=== PATIENT | male | born 1950 | race Caucasian/White ===

== ENCOUNTER 2016-11-02 11:02 | Emergency (ER) | payer BC, MEDICAID, OTHER ==
[2016-11-02 11:23] VITALS: BP 141/77
[2016-11-02] MEDS ORDERED: HYDROmorphone 1 MG/ML Syringe IM ONE (11:34)
--- NOTE | 2016-11-02 11:41 | EDM.PDOC ---
ED HPI GENERAL MEDICAL PROBLEM - General Chief Complaint: Lower Extremity Injury/Pain Stated Complaint: PAIN FROM LOWER BACK TO ANKLE Time Seen by Provider: 11/02/16 11:24 Source of Information: Reports: Patient, RN Notes Reviewed History Limitations: Reports: No Limitations - History of Present Illness INITIAL COMMENTS - FREE TEXT/NARRATIVE: 66-year-old gentleman presents emergency department today with left hip pain he is currently being evaluated for hip replacement he has received injections in this hip which has provided significant relief he does use ibuprofen as well as .he believes gabapentin. Unfortunately the pain medication is not helping him his biggest issue today is for pain control. - Related Data Allergies Allergy/AdvReac Type Severity Reaction Status Date / Time No Known Allergies Allergy Verified 04/09/16 08:53 Home Meds: Home Meds Aspirin [Maria Elena Chewable Aspirin] 81 mg PO DAILY 10/15/14 [History] FLUoxetine [PROzac] 20 mg PO DAILY 10/15/14 [History] Losartan [Cozaar] 25 mg PO DAILY 10/15/14 [History] Omeprazole [Prilosec] 20 mg PO DAILY 10/15/14 [History] Rivaroxaban [Xarelto] 20 tab PO DAILY 10/15/14 [History] atorvaSTATin [Lipitor] 80 mg PO DAILY 10/15/14 [History] Multivitamin [Multi-Vitamin Daily] 1 tab PO DAILY 12/07/14 [History] Sildenafil Citrate [Viagra] 25 mg PO ASDIRECTED PRN 12/07/14 [History] Metoprolol Tartrate [Metoprolol Tartrate] 100 mg PO BID 04/07/16 [History] Past Medical History HEENT History: Reports: None Cardiovascular History: Reports: Afib, CAD, Cardiomyopathy Genitourinary History: Reports: BPH Psychiatric History: Reports: Depression - Infectious Disease History Infectious Disease History: Reports: Chicken Pox, Measles, Mumps - Past Surgical History HEENT Surgical History: Reports: Cataract Surgery Cardiovascular Surgical History: Reports: Coronary Artery Stent, Other (See Below) Musculoskeletal Surgical History: Reports: Arthroscopic Knee, Hip Replacement, Shoulder Surgery Social & Family History - Tobacco Use Smoking Status *Q: Former Smoker Years of Tobacco use: 20 Packs/Tins Daily: 3 Used Tobacco, but Quit: Yes Month Tobacco Last Used: 01 Second Hand Smoke Exposure: No - Caffeine Use Caffeine Use: Reports: None - Alcohol Use Days Per Week of Alcohol Use: 7 Number of Drinks Per Day: 2 Total Drinks Per Week: 14 - Recreational Drug Use Recreational Drug Use: No Review of Systems - Review of Systems Review Of Systems: See Below Constitutional: Reports: No Symptoms Respiratory: Reports: No Symptoms Cardiovascular: Reports: No Symptoms Musculoskeletal: Reports: Joint Pain (Right hip pain) ED EXAM, GENERAL - Physical Exam Exam: See Below Free Text/Narrative:: Examination the back on appreciate any abnormality has full range of motion of the back there is no erythema there is no edema there is no point tenderness he has greatest tenderness is to palpation over the greater trochanter on the right side as well as in the buttocks cross leg test and straight leg test both negative pain is worse with standing Exam Limited By: No Limitations General Appearance: Alert, WD/WN, No Apparent Distress Course - Vital Signs Last Recorded V/S: Last Vital Signs Temp 98.1 F 11/02/16 11:20 Pulse 60 11/02/16 11:20 Resp 16 11/02/16 11:20 BP 141/77 H 11/02/16 11:20 Pulse Ox 97 11/02/16 11:20 - Orders/Labs/Meds Meds: Medications Discontinued Medications Generic Name Dose Route Start Last Admin Trade Name Binq PRN Reason Stop Dose Admin Hydromorphone HCl 1 mg 11/02/16 11:34 Dilaudid IM 11/02/16 11:35 ONETIME ONE Departure - Departure Time of Disposition: 11:40 Disposition: Home, Self-Care 01 Condition: Good Clinical Impression: Right hip pain - Discharge Information Forms: ED Department Discharge Additional Instructions: Use hydrocodone as needed for pain control, this medication does contain Tylenol monitor urine total dose of Tylenol not to exceed 4000 mg in a 24-hour period, Please followup with your primary care provider in 3-5 days if not better, please call return to the emergency department with worsening of symptoms. - Assessment/Plan Plan: Assessment Acuity = chronic Site and laterality = right hip pain Etiology = probable degenerative joint disease Manifestations = none Location of injury = Home Lab values = none Plan He is provided 1 mg Dilaudid IM for pain relief prescription written for hydrocodone total #10 tablets follow-up with primary care in 3-5 days for reevaluation, Patient was in agreement with the plan all questions were answered, they were instructed to return to the emergency department or call for worsening symptoms. This note was dictated using [employer] voice recognition software please call with any questions.
== END 2016-11-02 11:58 | disposition home or self-care (01) ==
LOC: JP.ED 11:02
DX: M25.552 Pain in left hip (principal); I48.91 Unspecified atrial fibrillation; I25.10 Atherosclerotic heart disease of native coronary artery without angina pectoris; F32.9 Major depressive disorder, single episode, unspecified; Z79.82 Long term (current) use of aspirin; Z79.899 Other long term (current) drug therapy; Z98.49 Cataract extraction status, unspecified eye; Z95.5 Presence of coronary angioplasty implant and graft; Z96.659 Presence of unspecified artificial knee joint; Z96.649 Presence of unspecified artificial hip joint; Z98.890 Other specified postprocedural states; Z87.891 Personal history of nicotine dependence
CPT/HCPCS: 96372; 99283; J1170

== ENCOUNTER 2016-11-03 13:28 | Emergency (ER) | payer MEDICAID ==
[2016-11-03 15:34] VITALS: BP 139/87
[2016-11-03] MEDS ORDERED: HYDROmorphone 1 MG/ML Syringe IM ONE (16:17)
--- NOTE | 2016-11-03 16:33 | EDM.PDOC ---
ED HPI GENERAL MEDICAL PROBLEM - General Chief Complaint: Lower Extremity Injury/Pain Stated Complaint: SEVER PAIN IN RIGHT HIP Time Seen by Provider: 11/03/16 16:00 - History of Present Illness INITIAL COMMENTS - FREE TEXT/NARRATIVE: Elie Moreno is a 66 yo male who presents with right hip pain. Pain has been gradually worsening over the past 2 weeks. Patient has been seen by orthopedics and had significant (though very transient) relief of pain with hip injection with anesthetic and corticosteroid medication. Patient feels his symptoms immediately returned when his anesthetic wore off. He was seen in this ED yesterday as his pain became unbearable. IM dilaudid helped his symptoms but the at home Patterson have not helped at all. Patient has not been doing anything else for pain. He is unable to take high dose NSAIDs as he is on xarelto. His pain is worse with standing, and lying flat on his back is his most comfortable position. Right Hip Pain Score (Numeric/FACES): 9 - Related Data Allergies Allergy/AdvReac Type Severity Reaction Status Date / Time No Known Allergies Allergy Verified 04/09/16 08:53 Home Meds: Home Meds Aspirin [Maria Elena Chewable Aspirin] 81 mg PO DAILY 10/15/14 [History] FLUoxetine [PROzac] 20 mg PO DAILY 10/15/14 [History] Losartan [Cozaar] 25 mg PO DAILY 10/15/14 [History] Omeprazole [Prilosec] 20 mg PO DAILY 10/15/14 [History] Rivaroxaban [Xarelto] 20 tab PO DAILY 10/15/14 [History] atorvaSTATin [Lipitor] 80 mg PO DAILY 10/15/14 [History] Multivitamin [Multi-Vitamin Daily] 1 tab PO DAILY 12/07/14 [History] Sildenafil Citrate [Viagra] 25 mg PO ASDIRECTED PRN 12/07/14 [History] Metoprolol Tartrate [Metoprolol Tartrate] 100 mg PO BID 04/07/16 [History] Gabapentin [Gabapentin] 1 tab PO TID 11/02/16 [History] Hydrocodone/Acetaminophen [Hydrocodon-Acetaminophen 5-325] 11/03/16 [History] Past Medical History HEENT History: Reports: None Cardiovascular History: Reports: Afib, CAD, Cardiomyopathy Genitourinary History: Reports: BPH Psychiatric History: Reports: Depression - Infectious Disease History Infectious Disease History: Reports: Chicken Pox, Measles, Mumps - Past Surgical History HEENT Surgical History: Reports: Cataract Surgery Cardiovascular Surgical History: Reports: Coronary Artery Stent, Other (See Below) Social & Family History - Tobacco Use Smoking Status *Q: Never Smoker Years of Tobacco use: 20 Packs/Tins Daily: 3 Used Tobacco, but Quit: Yes Month Tobacco Last Used: 01 Second Hand Smoke Exposure: No - Caffeine Use Caffeine Use: Reports: Coffee - Alcohol Use Days Per Week of Alcohol Use: 7 Number of Drinks Per Day: 2 Total Drinks Per Week: 14 - Recreational Drug Use Recreational Drug Use: No Review of Systems - Review of Systems Review Of Systems: See Below Constitutional: Reports: No Symptoms Eyes: Reports: No Symptoms Mouth/Throat: Reports: No Symptoms Respiratory: Reports: No Symptoms Cardiovascular: Reports: No Symptoms GI/Abdominal: Reports: No Symptoms Musculoskeletal: Reports: Back Pain, Leg Pain, Joint Pain (right hip) Skin: Reports: No Symptoms Neurological: Reports: No Symptoms ED EXAM, GENERAL - Physical Exam Exam: See Below Exam Limited By: No Limitations General Appearance: Alert Neck: Normal Inspection, Supple Respiratory/Chest: No Respiratory Distress Cardiovascular: Normal Peripheral Pulses Peripheral Pulses: 2+: Posterior Tibial (R), Dorsalis Pedis (R) Back Exam: Paraspinal Tenderness (on right) Extremities: Normal Inspection, Normal Range of Motion, No Pedal Edema, Other ( Strength full to LE's bilaterally, no pain with passive ROM of right hip) Neurological: Normal Reflexes (to patella and achilles on right), No Motor/ Sensory Deficits, Abnormal Gait (mild to moderate antalgic gait) Psychiatric: Normal Affect, Normal Mood Skin Exam: Warm, Dry, Intact, Normal Color, No Rash Course - Vital Signs Last Recorded V/S: Last Vital Signs Temp 97.3 F 11/03/16 14:26 Pulse 60 11/03/16 15:31 Resp 20 11/03/16 15:31 BP 139/87 11/03/16 15:31 Pulse Ox 98 11/03/16 15:31 - Orders/Labs/Meds Meds: Medications Discontinued Medications Generic Name Dose Route Start Last Admin Trade Name Freq PRN Reason Stop Dose Admin Hydromorphone HCl 1 mg 11/03/16 16:17 11/03/16 16:24 Dilaudid IM 11/03/16 16:18 1 mg ONETIME ONE Administration Departure - Departure Time of Disposition: 17:00 Disposition: Home, Self-Care 01 Condition: Fair Clinical Impression: Acute right hip pain - Discharge Information Instructions: Hip Pain Referrals: Edmar Maria PA-C [Primary Care Provider] - Forms: ED Department Discharge - Assessment/Plan Assessment:: My impression is acute right hip pain versus lumbosacral radiculopathy on right. Patient has been seen by orthopedics and had relief from hip injection, but my history and exam is concerning for neuropathic sciatica type pain. No signs or symptoms of Cauda Equina syndrome, no incontinence or urinary retention and no weakness or numbness to LE's. Long discussion was had with patient regarding pain control and we agreed to trial a short course of Percocet for the pain. He will not take Patterson along with the Percocet. Fortunately, he has a follow up with orthopedics in 2 days. He will additionally trial Flexeril for symptoms. Reasons to return to the ED were discussed and patient was agreeable with plan.
== END 2016-11-03 16:51 | disposition home or self-care (01) ==
LOC: JP.ED 13:28
DX: M25.551 Pain in right hip (principal); I42.9 Cardiomyopathy, unspecified; I25.10 Atherosclerotic heart disease of native coronary artery without angina pectoris; F32.9 Major depressive disorder, single episode, unspecified; Z95.5 Presence of coronary angioplasty implant and graft; Z79.899 Other long term (current) drug therapy; Z98.49 Cataract extraction status, unspecified eye; Z79.82 Long term (current) use of aspirin
CPT/HCPCS: 96372; 99282; J1170

== ENCOUNTER 2019-12-03 16:35 | Emergency (ER) | payer MEDICARE, BC ==
[2019-12-03 16:47] VITALS: BP 120/85; PULSE 95
[2019-12-03] MEDS ORDERED: Bacitracin Oint 1 GM U/D Packet TOP ONE (17:06)
--- NOTE | 2019-12-03 17:10 | EDM.PDOC ---
ED HPI GENERAL MEDICAL PROBLEM - General Chief Complaint: Laceration Stated Complaint: CUT FINGER ON TABLE SAW Time Seen by Provider: 12/03/19 16:45 Source of Information: Reports: Patient History Limitations: Reports: No Limitations - History of Present Illness INITIAL COMMENTS - FREE TEXT/NARRATIVE: 69-year-old male with a laceration to his left thumb. He was working with a table saw and cut the tip of his thumb on the blade sustaining a laceration to the pulp of the thumb. There is a 1 x 2 cm area of injury on the pulp, most of it is fairly superficial but there is a small area of laceration at the proximal end of the wound. No other injury. Onset: Sudden Duration: Hour(s): (1 hour ago) Location: Reports: Upper Extremity, Left Associated Symptoms: Reports: No Other Symptoms Treatments TOOL AND DIE REPAIR: Reports: Other (see below) Other Treatments TOOL AND DIE REPAIR: holding pressure Left Finger-Thumb Pain Score (Numeric/FACES): 7 - Related Data Allergies Allergy/AdvReac Type Severity Reaction Status Date / Time No Known Allergies Allergy Verified 12/03/19 16:40 Home Meds: Home Meds FLUoxetine [PROzac] 20 mg PO DAILY 10/15/14 [History] Losartan [Cozaar] 25 mg PO DAILY 10/15/14 [History] Omeprazole [Prilosec] 20 mg PO DAILY 10/15/14 [History] atorvaSTATin [Lipitor] 80 mg PO DAILY 10/15/14 [History] Multivitamin [Multi-Vitamin Daily] 1 tab PO DAILY 12/07/14 [History] Sildenafil Citrate [Viagra] 25 mg PO ASDIRECTED PRN 12/07/14 [History] Metoprolol Tartrate 100 mg PO BID 04/07/16 [History] Warfarin [Coumadin] 5 mg PO DAILY 03/11/17 [History] Tamsulosin HCl [Flomax] 0.4 mg PO DAILY 12/03/19 [History] Past Medical History HEENT History: Reports: None Cardiovascular History: Reports: Afib, CAD, Cardiomyopathy Genitourinary History: Reports: BPH Psychiatric History: Reports: Depression - Infectious Disease History Infectious Disease History: Reports: Chicken Pox, Measles, Mumps - Past Surgical History HEENT Surgical History: Reports: Cataract Surgery Cardiovascular Surgical History: Reports: Coronary Artery Stent, Other (See Below) Social & Family History - Tobacco Use Smoking Status *Q: Never Smoker - Caffeine Use Caffeine Use: Reports: Coffee - Alcohol Use Days Per Week of Alcohol Use: 7 Number of Drinks Per Day: 3 Total Drinks Per Week: 21 - Recreational Drug Use Recreational Drug Use: No ED ROS GENERAL - Review of Systems Review Of Systems: See Below Constitutional: Denies: Fever Respiratory: Denies: Shortness of Breath Cardiovascular: Denies: Chest Pain GI/Abdominal: Denies: Abdominal Pain, Nausea, Vomiting Neurological: Denies: Paresthesia ED EXAM, SKIN/RASH Exam: See Below Exam Limited By: No Limitations General Appearance: Alert, No Apparent Distress (Patient appears uncomfortable but not distressed) Respiratory/Chest: No Respiratory Distress Extremities: Other (Exam is otherwise limited to the left hand. Patient has a 2 x 2.5 cm area of injury on the pulp of the thumb palmar surface left hand. There is a small 0.5 cm laceration at the proximal end of the injury, otherwise it is just a superficial deep abrasion. There is a avulsed tissue along one edge of the wound.) Neurological: Alert, Oriented Course - Vital Signs Last Recorded V/S: Last Vital Signs Temp 97 F 12/03/19 16:45 Pulse 95 12/03/19 16:45 Resp 14 12/03/19 16:45 BP 120/85 12/03/19 16:45 Pulse Ox 96 12/03/19 16:45 - Orders/Labs/Meds Meds: Medications Discontinued Medications Generic Name Dose Route Start Last Admin Trade Name Freq PRN Reason Stop Dose Admin Bacitracin 1 dose 12/03/19 17:06 12/03/19 17:20 Bacitracin Oint 1 Gm TOP 12/03/19 17:07 1 dose ONETIME ONE Administration - Re-Assessments/Exams Free Text/Narrative Re-Assessment/Exam: 12/03/19 17:08 Using a sterile iris scissors the tissue was removed. The patient elected to not have sutures unless it was necessary, it was not necessary. Topical bacitracin and a tube gauze was applied and he was given 10 Percocet for pain control over the next several days. He can recheck the wound with primary care at the clinic if he does not feel it is healing satisfactorily. Otherwise keep the wound clean, soak in warm water and soap on a daily basis and it should heal without issue. Departure - Departure Time of Disposition: 17:28 Disposition: Home, Self-Care 01 Clinical Impression: Laceration of left thumb Qualifiers: Encounter type: initial encounter Damage to nail status: without damage Foreign body presence: without foreign body Qualified Code(s): S61.012A - Laceration without foreign body of left thumb without damage to nail, initial encounter - Discharge Information Instructions: Laceration Care, Adult Referrals: PCP,None [Primary Care Provider] - Forms: ED Department Discharge Care Plan Goals: Keep wound covered and clean while healing, except when soaking in warm water and soap once daily to keep the wound clean. Recheck at the clinic if concerns of not healing satisfactorily. Sepsis Event Note (ED) - Evaluation Sepsis Screening Result: No Definite Risk
== END 2019-12-03 17:28 | disposition home or self-care (01) ==
LOC: JP.ED 16:35
DX: S61.012A Laceration without foreign body of left thumb without damage to nail, initial encounter (principal); I48.91 Unspecified atrial fibrillation; I25.10 Atherosclerotic heart disease of native coronary artery without angina pectoris; F32.9 Major depressive disorder, single episode, unspecified; Z79.899 Other long term (current) drug therapy; Z79.01 Long term (current) use of anticoagulants; W31.2XXA Contact with powered woodworking and forming machines, initial encounter
CPT/HCPCS: 99282